=== PATIENT | female | born 1950 | race Caucasian/White ===

== ENCOUNTER → 2016-08-15 | Outpatient (CLI) | payer OTHER, MEDICARE | LOC: BRMIMAGING 13:51 | DX: Z12.31 Encounter for screening mammogram for malignant neoplasm of breast (principal) | CPT/HCPCS: G0202 ==

== ENCOUNTER → 2016-09-12 | Outpatient (CLI) | payer OTHER, MEDICARE | LOC: FIMAGING 12:20 | PROVIDERS: ATTEND Nurse Practitioner Family | PROC: 0UJD7ZZ Inspection of Uterus and Cervix, Via Natural or Artificial Opening (ICD-10-PCS; principal; 2016-09-12) | DX: N89.8 Other specified noninflammatory disorders of vagina (principal); N85.9 Noninflammatory disorder of uterus, unspecified; D25.9 Leiomyoma of uterus, unspecified ==

== ENCOUNTER 2016-12-07 05:38 | Day surgery (SDC) | payer OTHER, MEDICARE ==
[2016-12-07] MEDS ORDERED: LIDOCAINE 1% 2 ML INJ ONE (06:18)
[2016-12-07] MEDS ORDERED: SILVER NITRATE APPLICATOR 1 APPL TP ONE (06:35)
[2016-12-07] MEDS ORDERED: LR 1,000 ML IV ONE (06:36)
[2016-12-07] MEDS ORDERED: LIDOCAINE 1% 2 ML INJ ID PRN (06:36)
--- NOTE | 2016-12-07 06:55 | PDANEPAE ---
ANE History of Present Illness 66 year old with PMH of hypothyroidism other healthy, no change in medication in last 20 years Denies URI last 6 weeks. History of PONV with ovarian cystectomy. ANE Past Medical History - Cardiovascular History Hx Hypertension: No Hx Arrhythmias: No Hx Chest Pain: No Hx Coronary Artery / Peripheral Vascular Disease: No Hx CHF / Valvular Disease: No Hx Palpitations: No - Pulmonary History Hx COPD: No Hx Asthma/Reactive Airway Disease: No Hx Recent Upper Respiratory Infection: No Hx Oxygen in Use at Home: No Hx Sleep Apnea: No Sleep Apnea Screening Result - Last Documented: Negative - Neurologic History Hx Cerebrovascular Accident: No Hx Seizures: No Hx Dementia: No - Endocrine History Hx Diabetes: No Endocrine History Comment: hypothyroidism - Renal History Hx Renal Disorders: No - Liver History Hx Hepatic Disorders: No - Neurological & Psychiatric Hx Hx Neurological and Psychiatric Disorders: No - Cancer History Hx Cancer: No - Congenital Disorder History Hx Congenital Disorders: No - GI History Hx Gastrointestinal Disorders: No Gastrointestinal History Comment: hx of colonoscopies - Other Health History Other Health History: wears glasses/ contacts. rash from hormone patch - Chronic Pain History Chronic Pain: No - Surgical History Prior Surgeries: ruptured ovarian cyst 1985. 1976. colonoscopies ANE Review of Systems - Exercise capacity METS (RN): 4 METS ANE Patient History - Allergies Allergies/Adverse Reactions: adhesive Allergy (Verified 11/28/16 10:53) Rash latex Allergy (Verified 11/28/16 10:41) Rash Penicillins Allergy (Verified 11/28/16 10:41) Hives tetracycline Allergy (Verified 11/28/16 10:41) Hives - Home Medications Home Medications: Bio-Identical Hormone Patch 11/28/16 [Last Taken 12/06/16 22:00] Herbals/Supplements -Info Only 11/28/16 [Last Taken 11/30/16] T3 11/28/16 [Last Taken 12/06/16 08:00] T4 11/28/16 [Last Taken 12/06/16 08:00] - NPO status NPO Since - Liquids (Date): 12/06/16 NPO Since - Liquids (Time): 22:00 NPO Since - Solids (Date): 12/06/16 NPO Since - Solids (Time): 20:00 - Smoking Hx Smoking Status: Former smoker - Family Anes Hx Family Hx Anesthesia Complications: none ANE Labs/Vital Signs - Vital Signs Blood Pressure: 107/66 Heart Rate: 57 Respiratory Rate: 18 O2 Sat (%): 98 Height: 157.48 cm Weight: 48.988 kg ANE Physical Exam - Airway Neck exam: FROM Mallampati Score: Class 1 Mouth exam: normal dental/mouth exam - Pulmonary Pulmonary: no respiratory distress - Cardiovascular Cardiovascular: regular rate and rhythym - ASA Status ASA Status: II ANE Anesthesia Plan Urgent/Emergent Case: Colleen ellis completed preop but documented later for safe timely pt care
[2016-12-07] MEDS ORDERED: SCOPOLAMINE HYDROBROMIDE 1.5 MG PATCH TD SCH (07:00)
[2016-12-07] MEDS ORDERED: SCOPOLAMINE HYDROBROMIDE 1.5 MG PATCH TD ONE (07:05)
[2016-12-07] MEDS ORDERED: PROPOFOL 200 MG/20 ML VIAL ONE (07:06)
[2016-12-07] MEDS ORDERED: DEXAMETHASONE 4 MG/ML VIAL ONE (07:06)
[2016-12-07] MEDS ORDERED: ONDANSETRON 4 MG/2 ML VIAL ONE (07:06)
[2016-12-07] MEDS ORDERED: ROCURONIUM 50 MG/5 ML VIAL ONE (07:06)
[2016-12-07] MEDS ORDERED: fentaNYL 100 MCG/2 ML INJ ONE (07:06)
[2016-12-07] MEDS ORDERED: MIDAZOLAM 2 MG/2 ML VIAL ONE (07:06)
--- NOTE | 2016-12-07 07:07 | PDHPUP ---
History & Physical Update H&P update statement: This history and physical update is based on an assessment of the patient which was completed after admission or registration (within 24 hours), but prior to the surgery/procedure. H&P update: H&P reviewed & patient examined, no change in patient's condition since H&P completed
[2016-12-07] MEDS ORDERED: PROPOFOL/EMULSION 500 MG/50 ML BOTTLE IV ONE (07:20)
[2016-12-07] MEDS ORDERED: LR 500 ML IV PRN (07:46)
[2016-12-07] MEDS ORDERED: fentaNYL 100 MCG/2 ML INJ IVP PRN (07:46)
[2016-12-07] MEDS ORDERED: METOCLOPRAMIDE 10 MG/2 ML VIAL IVP PRN (07:46)
[2016-12-07] MEDS ORDERED: PROMETHAZINE HCL 25 MG/ML INJ IVP PRN (07:46)
[2016-12-07] MEDS ORDERED: ACETAMINOPHEN 500 MG TAB PO PRN (07:46)
[2016-12-07] MEDS ORDERED: NALOXONE HCL 0.4 MG/ML INJ IVP PRN (07:46)
[2016-12-07] MEDS ORDERED: MEPERIDINE 25 MG/ML SYR IVP PRN (07:46)
[2016-12-07] MEDS ORDERED: HYDROCODONE/APAP 5/325 TAB PO PRN (08:11)
--- NOTE | 2016-12-07 09:23 | GOP ---
[f rep st] OPERATIVE REPORT DATE OF OPERATION: 12/07/2016 SURGEON: Nena Canas MD ANESTHESIA: IV general. ANESTHESIOLOGIST: Alysia Turcios M.D. PREOPERATIVE DIAGNOSIS: 1. Postmenopausal vaginal bleeding. 2. Uterine polyps. POSTOPERATIVE DIAGNOSIS: 1. Postmenopausal vaginal bleeding. 2. Uterine polyps. PROCEDURE PERFORMED: 1. Diagnostic hysteroscopy. 2. Hysteroscopic polypectomy. FINDINGS: A small midline uterus. Multiple small polyps at the junction of the internal os and lower uterine segment, which were all completely resected. Right ostia visualized. Left ostia not visualized. Area of possible scar tissue in the left upper cavity. FLUID DEFICIT: 500 mL normal saline. OUTCOME: Stable to PACU. SPECIMENS: Endometrial curettings and endometrial polyp. ESTIMATED BLOOD LOSS: 20 mL. INDICATIONS: The patient is a 66-year-old 2, para 2-0-0-2, who is postmenopausal and has been taking bioidentical hormone replacement therapy. She presented to her primary care provider with a small amount of postmenopausal vaginal bleeding. A pelvic ultrasound and sonohysterogram were both completed, which showed possible small uterine polyps in the lower uterine segment and a thin endometrial stripe. We reviewed the management options and she desired to proceed with definitive diagnostic hysteroscopy. Reviewed the risks and benefits, and she agreed to proceed. DESCRIPTION OF PROCEDURE: The patient was brought to the operating room and a time-out was performed, with all parties present in agreement with the patient and procedure. IV general sedation was begun. She was prepped and draped in the normal sterile fashion in dorsal lithotomy, in Gaurav stirrups. She had already voided prior to the procedure. A speculum was placed. The anterior lip of the cervix was grasped with a single-tooth tenaculum. The cervix was sequentially dilated from 1-5.5 mm without difficulty. The hysteroscope was introduced and the findings were as noted above. The 5 mm TRUCLEAR polyp blade was introduced and all the polyps were resected. All instruments were removed. A sharp curettage was completed at this time. One further look was done with the hysteroscope, confirming no further polyps or masses. All instruments were removed at this time. Hemostasis was obtained after using silver nitrate on the right-sided tenaculum puncture wound. The patient tolerated the procedure well. Counts were correct x2. She was awakened and brought to the recovery room in stable condition. FLUIDS REPLACED: 1150 mL. COMPLICATIONS: None. /[id number]/MODL MTDD
[2016-12-07 11:10] VITALS: BP 101/59; RESP 16; O2SAT 97
[2016-12-07 11:16] VITALS: TEMP 97.7
[2016-12-07 17:07] VITALS: PULSE 65
[2016-12-08] MEDS ORDERED: PATCH REMOVAL 1 EA PATCH TD ONE (06:59)
[2016-12-10] MEDS ORDERED: PATCH REMOVAL 1 EA PATCH TD SCH (06:59)
== END 2016-12-07 11:17 | disposition home or self-care (01) ==
LOC: FSGY 05:38
PROVIDERS: ATTEND Obstetrics & Gynecology
PROC: 0UB98ZX Excision of Uterus, Via Natural or Artificial Opening Endoscopic, Diagnostic (ICD-10-PCS; principal; 2016-12-07 07:15)
DX: N95.0 Postmenopausal bleeding (principal); N84.0 Polyp of corpus uteri
CPT/HCPCS: 58558; C1782; J1100; J2250; J2405; J2704; J3010

== ENCOUNTER → 2017-11-15 | Outpatient (CLI) | payer OTHER, MEDICARE | LOC: BRMIMAGING 11:32 | PROVIDERS: ATTEND Family Medicine | DX: Z12.31 Encounter for screening mammogram for malignant neoplasm of breast (principal) ==

== ENCOUNTER 2018-10-14 13:25 | Emergency (ER) | payer OTHER, MEDICARE ==
[2018-10-14] MEDS ORDERED: NS 1,000 ML IV ONE (14:36)
--- NOTE | 2018-10-14 15:34 | EDPHY ---
H & P Smoking Status: Former smoker Time Seen by Provider: 10/14/18 13:55 HPI/ROS: CHIEF COMPLAINT: Lightheadedness, fatigue. HISTORY OF PRESENT ILLNESS: Patient states that on she noticed fatigue and felt like she had no energy. She also describes lightheadedness, not dizziness, off and on that day. Since these symptoms have been persistent and feel somewhat worse than when they started. She states that eating protein helps but nothing in particular seems to make it worse. She denies any fever but says she always runs cold and has chills. She did go to urgent care today prior to the ED visit and was sent here. She denies any double vision, headache, of other recent illnesses. Her last significant illness was last year in December when she had pneumonia. She also states that she notices her left hand shakes occasionally and at time she has some clumsiness which she describes an example of as dropping some water while making coffee the other day. She did perform in a singing performance on Sunday without any trouble. She has had no dyspnea on exertion. She has had no chest pain. REVIEW OF SYSTEMS: Constitutional: No fever, no chills. Eyes: No discharge. ENT: No sore throat. Cardiovascular: No chest pain, no palpitations. Respiratory: No cough, no shortness of breath. Gastrointestinal: No abdominal pain, no vomiting. Genitourinary: No dysuria. Musculoskeletal: No back pain. Skin: No rashes. Neurological: No headache. General Appearance: Alert, no distress. Eyes: Pupils equal and round no pallor or injection. ENT, Mouth: Mucous membranes moist. Respiratory: There are no retractions, lungs are clear to auscultation. Cardiovascular: Regular rate and rhythm. Gastrointestinal: Abdomen is soft and nontender, no masses, bowel sounds normal. Neurological: Cranial nerves intact, normal strength and sensation all 4 extremities. Normal finger-nose. Normal gait. Normal reflexes. No clonus. Skin: Warm and dry, no rashes. Musculoskeletal: Neck is supple nontender. Extremities are symmetrical, full range of motion, no edema. Psychiatric: Patient is oriented X 3, there is no agitation. Medical/surgical history: Hypothyroid, osteopenia, ovarian cyst, . Social history: Nonsmoker, occasional ETOH. (Sandra Conde) Constitutional: Initial Vital Signs Temperature (C) 37.0 C 10/14/18 13:38 Heart Rate 52 L 10/14/18 13:38 Blood Pressure 93/62 L 10/14/18 13:38 O2 Sat (%) 98 10/14/18 13:38 O2 Delivery Mode Room Air Allergies/Adverse Reactions: adhesive Allergy (Verified 10/14/18 13:56) Rash latex Allergy (Verified 10/14/18 13:56) Rash Penicillins Allergy (Verified 10/14/18 13:56) Hives tetracycline Allergy (Verified 10/14/18 13:56) Hives Home Medications: Medication Instructions Recorded Bio-Identical Hormone Patch 11/28/16 Herbals/Supplements -Info Only 11/28/16 T3 11/28/16 T4 11/28/16 Medical Decision Making Differential Diagnosis: Differential diagnosis includes but is not limited to vertigo, labyrinthitis, dehydration, electrolyte abnormality, hypothyroidism. After evaluation unlikely vertigo or labyrinthitis. Lower no suspicion for cardiopulmonary cause of her symptoms. Plan is to check electrolytes, TSH, give IV fluids and re-evaluate. Discussed in detail with Dr. Christian at the end of my shift. She will await laboratory evaluation and re-evaluate prior to disposition. (Sandra Conde) Other Provider: I assumed care pending results of labs. Patient was known to have some low blood pressure and bradycardia on arrival. When I re-evaluated the patient her blood pressure was 107 and her heart rate was in the 60s and she was asymptomatic.. We did perform an ECG which showed a normal sinus rhythm with a sinus arrhythmia rate of 65 with diffusely flattened T-waves and prolonged QT. We are awaiting results of TSH and I added on a troponin and magnesium. Troponin was negative. Magnesium was within normal limits and TSH is pending at time of dictation. Patient was feeling much better after L of fluid. Her blood pressure and heart rate remained stable. She does note that her blood pressure is always typically low. I did discuss the patient's EKG with her and she states that she has had a "abnormal EKG in the past and for which he has had an evaluation by environmental services attendant. We will give her a copy of her EKG today to take with her to her primary care physician I am recommending follow up closely with her PCP for evaluation of her prolonged QT and of her TSH. Her was wondering if her symptoms my related to be vertigo due to an inner ear problem as she had a ear irrigation done to her 3 weeks ago and has been using Debrox drops in her ear since. She does have notable cerumen impaction in her right ear. The left is clear. Is although her symptoms are not clearly vertiginous I can't exclude this as a cause of her feeling dizzy. ( Earline Christian) - Data Points Laboratory Results: 10/14/18 10/14/18 10/14/18 16:10 14:58 14:55 POC Sodium 142 mEq/L mEq/L (135-145) POC Potassium 3.8 mEq/L mEq/L (3.3-5.0) POC Chloride 106.0 mEq/L mEq/L (97-110) POC Total CO2 29 mEq/L mEq/L (22-31) POC BUN 21 mg/dL mg/dL (7-23) POC Creatinine 0.8 mg/dL mg/dL (0.6-1.0) POC Glucose 78 mg/dL mg/dL (70-100) POC Calcium 9.5 mg/dL mg/dL (8.5-10.4) Magnesium 2.3 mg/dL mg/dL (1.6-2.3) POC Total Bilirubin 0.6 mg/dL mg/dL (0.1-1.4) POC AST 24 IU/L IU/L (14-46) POC ALT 19 IU/L IU/L (9-52) POC Alk Phosphatase 43 IU/L IU/L (38-126) POC Troponin I 0.00 ng/mL ng/mL (0.00-0.08) POC Total Protein 7.1 g/dL g/dL (6.3-8.2) POC Albumin 3.7 g/dL g/dL (3.5-5.0) TSH 1.490 uIU/mL uIU/mL (0.465-4.680) Medications Given: Discontinued Medications Sodium Chloride (Ns) 1,000 mls @ 0 mls/hr IV ONCE ONE; Wide Open PRN Reason: Protocol Stop: 10/14/18 14:37 Last Admin: 10/14/18 15:15 Dose: 1,000 mls Point of Care Test Results: CBC CBC Collection Date 10/14/18 CBC Collection Time 14:55 WBC 5.06 RBC 4.46 HGB 14.1 HCT 41.3 PLT 201 Neut # 2.05 Neut 40.5 LYMPH # 2.52 LYMPH 49.8 MCV 92.6 Chemistry 10/14/18 10/14/18 16:10 14:58 POC Sodium 142 mEq/L mEq/L (135-145) POC Potassium 3.8 mEq/L mEq/L (3.3-5.0) POC Chloride 106.0 mEq/L mEq/L (97-110) POC Total CO2 29 mEq/L mEq/L (22-31) POC BUN 21 mg/dL mg/dL (7-23) POC Creatinine 0.8 mg/dL mg/dL (0.6-1.0) POC Glucose 78 mg/dL mg/dL (70-100) POC Calcium 9.5 mg/dL mg/dL (8.5-10.4) POC Total Bilirubin 0.6 mg/dL mg/dL (0.1-1.4) POC AST 24 IU/L IU/L (14-46) POC ALT 19 IU/L IU/L (9-52) POC Alk Phosphatase 43 IU/L IU/L (38-126) POC Troponin I 0.00 ng/mL ng/mL (0.00-0.08) POC Total Protein 7.1 g/dL g/dL (6.3-8.2) POC Albumin 3.7 g/dL g/dL (3.5-5.0) Departure - Departure Disposition: Home, Routine, Self-Care Clinical Impression: Dizziness, nonspecific, Prolonged Q-T interval on ECG Condition: Good Instructions: Lightheadedness (ED) Additional Instructions: You were seen by Dr. Earline Christian today. The cause of your dizziness is unclear, it may be related to ear ongoing ear wax problem. Your TSH result is pending. You may call for this results tomorrow and discuss it with her primary care physician to see if your medication dose needs to be changed. Please also follow up with her primary care physician regarding your ECG which shows a prolonged QT interval. I recommend you see your PCP in the next week. Please continue to use the ear drops previously prescribed by her PCP. Return for any worsening or new concerns. Referrals: NONE *PRIMARY CARE P,. [Primary Care Provider] - As per Instructions
[2018-10-14 16:54] VITALS: BP 105/50
== END 2018-10-14 18:42 | disposition home or self-care (01) ==
LOC: CED 13:25
DX: R42 Dizziness and giddiness (principal); E86.9 Volume depletion, unspecified
CPT/HCPCS: 80053-ER; 84484-ER; 85025-QW-ER; 96360-ER; 99284-ER